=== PATIENT | male | born 1970 | race Caucasian/White ===

== ENCOUNTER 2017-12-15 21:28 | Emergency (ER) | payer SELFPAY ==
[2017-12-15 22:01] LABS: #Basophils 0.1 thou/uL (0.0-0.2); #Eosinphils 0.1 thou/uL (0.0-0.7); #Lymphocytes 1.1 thou/uL (1.20-3.40); #Monocytes 0.6 thou/uL (0.11-0.59); %Basophils 0.6 % (0.0-1.0); %Eosinophils 0.5 % (0.0-10.0); %Lymphocytes 9.2 % (21.0-51.0); %Neutrophils 84.7 % (42.0-75.0); Hemoglobin 16.6 g/dL (14.0-18.0); Mean Corpuscular HGB CONC 32.6 g/dL (32.0-36.0); Mean Corpuscular Hemoglobin 29.1 pg (27.0-31.0); Mean Corpuscular Volume 89.3 fL (78.0-98.0); Mean Platelet Volume 7.9 fL (7.4-10.4); Platelet Count 320 thou/uL (130-400); RBC Distribution Width 11.8 % (11.5-14.5); Red Blood Cell (RBC) Count 5.68 mill/uL (4.70-6.10); White Blood Cell (WBC) Count 11.8 thou/uL (4.8-10.8)
[2017-12-15 22:11] LABS: Bilirubin Negative (Negative); Blood, Urine Negative (Negative); Clarity CLEAR (Clear); Glucose, Urine (Dipstick) Negative (Negative); Leukocyte Negative (Negative); Nitrite Negative (Negative); Protein, Urine (Dipstick) Trace mg/dL (Neg-Trace); Specific Gravity, Urine 1.024 (1.002-1.036); Urobilinogen 0.2 mg/dL (0.2-1.0)
--- NOTE | 2017-12-15 22:16 | RAD ---
PORTABLE UPRIGHT FRONTAL CHEST RADIOGRAPH 12/15/17 COMPARISON: None. HISTORY: Cough. FINDINGS: Heart and mediastinal contours appear within normal limits. The lungs appear clear. IMPRESSION: No acute findings. POS: [facility]
[2017-12-15 22:17] LABS: ALT (SGPT) 60 U/L (8-55); AST (SGOT) 29 U/L (5-34); Albumin 3.8 g/dL (3.5-5.0); Alkaline Phosphatase 84 U/L (40-150); Anion Gap 15 mmol/L (10-20); BUN (Urea Nitrogen) 15 mg/dL (8.9-20.6); Bilirubin, Total 0.5 mg/dL (0.2-1.2); CK (CPK) 222 U/L (30-200); Calc. Creatinine Clearance 0 mL/min (70-130); Calcium 8.9 mg/dL (7.8-10.44); Carbon Dioxide 18 mmol/L (22-29); Chloride 108 mmol/L (98-107); Estimated GFR-MDRD 58; Globulin 3.6 g/dL (2.4-3.5); Glucose 93 mg/dL (70-105); Potassium 4.1 mmol/L (3.5-5.1); Protein, Total 7.4 g/dL (6.0-8.3); Sodium 137 mmol/L (136-145)
[2017-12-15 22:21] LABS: CKMB 2.1 ng/mL (0-6.6); Troponin I Less than 0.010 ng/mL (< 0.028)
[2017-12-15] MEDS ORDERED: Ketorolac Tromethamine 30 MG/ML VIAL ONE (22:44)
[2017-12-15] MEDS ORDERED: Metoclopramide HCl 10 MG/2 ML VIAL ONE (22:44)
== END 2017-12-15 23:31 | disposition home or self-care (01) ==
LOC: ERS 21:28
DX: E86.0 Dehydration (principal); F32.9 Major depressive disorder, single episode, unspecified; Z79.899 Other long term (current) drug therapy
CPT/HCPCS: 36415; 71045; 80053; 81003; 82553; 83605; 84484; 85025; 93005; 96361; 96365; 96375; J1885; J2765

== ENCOUNTER 2018-05-31 21:19 | Observation (INO) | payer OTHER ==
[2018-05-31] MEDS ORDERED: Ondansetron ODT 4 MG TAB ONE (21:29)
--- NOTE | 2018-05-31 21:40 | RAD ---
CHEST ONE VIEW: 05/31/18 COMPARISON: 12/15/17 HISTORY: Pain. FINDINGS: Normal cardiac silhouette. The lungs and pleural spaces are clear. No pneumothorax or osseous abnorma lities. IMPRESSION: No acute cardiopulmonary process. POS: [facility]
[2018-05-31 21:58] LABS: #Basophils 0.1 thou/uL (0.0-0.2); #Eosinphils 0.1 thou/uL (0.0-0.7); #Lymphocytes 2.8 thou/uL (1.20-3.40); #Monocytes 0.4 thou/uL (0.11-0.59); #Neutrophils 2.8 thou/uL (1.40-6.50); %Basophils 1.2 % (0.0-1.0); %Eosinophils 2.2 % (0.0-10.0); %Lymphocytes 45.2 % (21.0-51.0); %Monocytes 6.4 % (0.0-10.0); Hemoglobin 15.1 g/dL (14.0-18.0); Mean Corpuscular HGB CONC 34.7 g/dL (32.0-36.0); Mean Corpuscular Hemoglobin 30.9 pg (27.0-31.0); Mean Corpuscular Volume 89.1 fL (78.0-98.0); Mean Platelet Volume 7.7 fL (7.4-10.4); Platelet Count 344 thou/uL (130-400); RBC Distribution Width 11.2 % (11.5-14.5); Red Blood Cell (RBC) Count 4.89 mill/uL (4.70-6.10); White Blood Cell (WBC) Count 6.2 thou/uL (4.8-10.8)
[2018-05-31 22:09] LABS: ALT (SGPT) 62 U/L (8-55); AST (SGOT) 30 U/L (5-34); Albumin 4.1 g/dL (3.5-5.0); Alkaline Phosphatase 84 U/L (40-150); Anion Gap 16 mmol/L (10-20); BUN (Urea Nitrogen) 18 mg/dL (8.9-20.6); Bilirubin, Total 0.3 mg/dL (0.2-1.2); Calc. Creatinine Clearance 0 mL/min (70-130); Calcium 9.4 mg/dL (7.8-10.44); Carbon Dioxide 20 mmol/L (22-29); Chloride 108 mmol/L (98-107); Estimated GFR-MDRD 84; Globulin 3.3 g/dL (2.4-3.5); Glucose 139 mg/dL (70-105); Potassium 3.5 mmol/L (3.5-5.1); Protein, Total 7.4 g/dL (6.0-8.3); Sodium 140 mmol/L (136-145)
--- NOTE | 2018-05-31 22:31 | PDOC.FPRHP ---
- History of Present Illness Chief Complaint: Chest pain History of Present Illness: Mr. Hernandez presents to the ED with chest pain He reports that at 1830 today he began experiencing substernal pressure, non radiating, non exertional, no diaphoresis with nausea. Upon exam this pain has resolved, he has had pain like this previously that has resolved. He reports acid reflux in the past with pain different from this. He denies any SOB, palpitations, RICHTER, orthopnea. He has HTN and HLD which is untreated 2/2 not following with PCP. He reports his father at 49 from [place]. ED Course: CBC, CMP, CK, Trop, CXR, EKG asa, zofran - History PMHx:HTN, HLD, SARAHI/MDD, migraines PSHx: back surgery 2/2 trauma FHx:CAD Social: no TAD - Review of Systems General: denies: fever/chills, weight/appetite/sleep changes Eyes: denies: eye pain, vision changes Respiratory: denies: cough, congestion, shortness of breath, exercise intolerance Cardiovascular: reports: chest pain. denies: palpitation, edema, orthopnea Gastrointestinal: reports: nausea. denies: vomiting, diarrhea, constipation Genitourinary: denies: incontinence, dysuria Skin: denies: rashes, lesions Musculoskeletal: denies: pain, tenderness Neurological: denies: numbness, syncope, weakness Psychological: reports: anxiety, depression - Vital signs BP: 127/89 HR: 74 RR: 18 Tmax: 97.2 Pox: 98% on RA Wt: 90kg - Physical Exam Constitutional: NAD, awake, alert and oriented HEENT: normocephalic and atraumatic, grossly normal vision, grossly normal hearing, MMM Neck: supple, trachea midline, no JVD Chest: no-tender to palpation, no lesions Heart: RRR, normal S1/S2, no murmurs/rubs/gallops, pulses present, no edema Lungs: CTAB, no respiratory distress, good air movement, no rales/rhonchi Abdomen: soft, non-tender, bowel sounds present Musculoskeletal: normal structure, normal tone Neurological: no focal deficit, normal sensation Skin: no rash/lesions, good turgor Heme/Lymphatic: no unusual bruising or bleeding Psychiatric: normal mood and affect FMR H&P: Results - Labs Result Diagrams: 05/31/18 21:39 05/31/18 21:39 Lab results: WBC 6.2 thou/uL (4.8-10.8) 05/31/18 21:39 Hgb 15.1 g/dL (14.0-18.0) 05/31/18 21:39 Hct 43.6 % (42.0-52.0) 05/31/18 21:39 MCV 89.1 fL (78.0-98.0) 05/31/18 21:39 Plt Count 344 thou/uL (130-400) 05/31/18 21:39 Neutrophils % 45.0 % (42.0-75.0) 05/31/18 21:39 Sodium 140 mmol/L (136-145) 05/31/18 21:39 Potassium 3.5 mmol/L (3.5-5.1) 05/31/18 21:39 Chloride 108 mmol/L (98-107) H 05/31/18 21:39 Carbon Dioxide 20 mmol/L (22-29) L 05/31/18 21:39 BUN 18 mg/dL (8.9-20.6) 05/31/18 21:39 Creatinine 0.95 mg/dL (0.7-1.3) 05/31/18 21:39 Glucose 139 mg/dL (70-105) H 05/31/18 21:39 Calcium 9.4 mg/dL (7.8-10.44) 05/31/18 21:39 Total Bilirubin 0.3 mg/dL (0.2-1.2) 05/31/18 21:39 AST 30 U/L (5-34) 05/31/18 21:39 ALT 62 U/L (8-55) H 05/31/18 21:39 Alkaline Phosphatase 84 U/L (40-150) 05/31/18 21:39 Creatine Kinase 108 U/L (30-200) 05/31/18 21:39 Serum Total Protein 7.4 g/dL (6.0-8.3) 05/31/18 21:39 Albumin 4.1 g/dL (3.5-5.0) 05/31/18 21:39 FMR H&P: A/P - Problem List (1) Chest pain Current Visit: Yes Status: Acute Code(s): R07.9 - CHEST PAIN, UNSPECIFIED (2) HTN (hypertension) Current Visit: Yes Status: Acute Code(s): I10 - ESSENTIAL (PRIMARY) HYPERTENSION (3) HLD (hyperlipidemia) Current Visit: Yes Status: Acute Code(s): E78.5 - HYPERLIPIDEMIA, UNSPECIFIED - Plan Chest pain - typical story, risk factors for CAD present - trop negx1, ekg wnl - s/p asa, continue daily - repeat EKG, give nitro prn for significant chest pain - exercise NM stress in AM, consider cards consult pending results - NPO at midnight HTN - normotensive on exam, consider beginning HTN therapy if consistent elevated BPs - hydralazine prn for SBP>180 HLD - FLP pending, high intensity statin therapy MDD/SARAHI - continue home meds migraines - continue home meds code: full ppx: lovenox dispo: tele obs for cardiac monitoring, trend trops, stress in AM FMR H&P: Upper Level - Pertinent history 48M with HTN and HLD presents for chest pain. It started at approximately 1830 today while driving home from [place]. Descr ibed as a constant pain, substernal , nonradiating, worsening over time, associated with nausea, not relieved or exacerbated by anything. His family history pertinent for father who from [place] at age 49. Heart score of 4 for age, mildly suspicious story and risk factor of HLD, HTN, family history. In ER, who pain was relieved spontaneously. He received 4mg zofran and 325 of aspirin. His trop less then 0.01, CXR showed no acute cardiopulm process and EKG was NSR. - Pertinent findings Gen: Not in acute distress, resting HEENT: Normocephalic, midline trachea, hearing and vision grossly intact CV: No cyanosis, no chest lesion seen Resp: Unlabored - Plan Date/Time: 05/31/182228 1. Atypical chest pain, ACS rule out - Heart score 4. Trop, EKG, CXR negative. Symptom resolved sponatenously - Moderate risk, elevated heart score. Plan for exercise stress tomorrow. See internet marketing strategist note for chronic issues and complete past medical history. I, [Tahir Joyner], have evaluated this patient and agree with findings/plan as outlined by internet marketing strategist resident. Pertinent changes/additions are listed here.
[2018-05-31] MEDS ORDERED: Aspirin Chewable 81 MG TAB ONE (22:48)
[2018-06-01 00:09] VITALS: BMI 29.6
[2018-06-01] MEDS ORDERED: Ondansetron ODT 4 MG TAB PO PRN (00:21)
[2018-06-01] MEDS ORDERED: Acetaminophen 325 MG TAB PO PRN (00:21)
[2018-06-01] MEDS ORDERED: Ondansetron PF 4 MG/2 ML Vial IVP PRN (00:21)
[2018-06-01] MEDS ORDERED: hydrALAZINE 20 MG/ML VIAL SLOW IVP PRN (00:21)
[2018-06-01] MEDS ORDERED: Nitroglycerin 0.4 MG TAB (25 Tab Bottle) PO PRN (00:21)
[2018-06-01] MEDS ORDERED: Zolpidem Tartrate 5 MG TAB PO SCH ×2 (00:45→21:00)
[2018-06-01 01:06] LABS: Troponin I Less than 0.010 ng/mL (< 0.028)
[2018-06-01 04:50] LABS: Cardiac Risk 5.4 (Less than 4.5)
[2018-06-01 04:55] LABS: Troponin I Less than 0.010 ng/mL (< 0.028)
--- NOTE | 2018-06-01 06:24 | PDOC.FM ---
- Subjective Subjective: Patient denies having has any chest pain since getting to the floor. Also denies any N/V, SOB, or diaphoresis. - Objective MAR Reviewed: Yes Vital Signs & Weight: Vital Signs (12 hours) Temp Pulse Resp BP BP Pulse Ox 06/01/18 04:00 97.4 F L 61 16 96/55 L 94 L 06/01/18 00:21 96 06/01/18 00:11 97.5 F L 56 L 20 126/86 96 Weight Weight 88.36 kg I&O: 05/30/18 05/31/18 06/01/18 06:59 06:59 06:59 Intake Total 140 Balance 140 Result Diagrams: 05/31/18 21:39 05/31/18 21:39 Phys Exam - Physical Examination Constitutional: NAD HEENT: moist MMs, sclera anicteric Neck: supple, full ROM Respiratory: no wheezing, no rales, no rhonchi, clear to auscultation bilateral Cardiovascular: RRR, no significant murmur non-TTP Gastrointestinal: positive bowel sounds Neurological: non-focal, moves all 4 limbs Psychiatric: normal affect, A&O x 3 Skin: no rash, normal turgor Dx/Plan (1) GERD (gastroesophageal reflux disease) Code(s): K21.9 - GASTRO-ESOPHAGEAL REFLUX DISEASE WITHOUT ESOPHAGITIS Status: Acute (2) SARAHI (generalized anxiety disorder) Code(s): F41.1 - GENERALIZED ANXIETY DISORDER Status: Acute (3) Chest pain Code(s): R07.9 - CHEST PAIN, UNSPECIFIED Status: Acute (4) HLD (hyperlipidemia) Code(s): E78.5 - HYPERLIPIDEMIA, UNSPECIFIED Status: Acute (5) HTN (hypertension) Code(s): I10 - ESSENTIAL (PRIMARY) HYPERTENSION Status: Acute - Plan Plan: Typical Chest pain 2/2 suspected CAD - Patient's story was a typical ACS story and has multiple risk factors for CAD present with heart score of 4. However, trop negx3 & ekg wnls. - s/p asa in the ED. Will continue daily ASA. - FLP significant for HLD w/ total cholesterol of 233 & LDL of 153. Will consider an A1c for further risk stratification. - Exercise NM stress to be done this AM. Will consult cards PRN based on results. HLD - See FLP results noted above. - Will start on high intensity statin therapy. Reported h/o HTN - Normotensive on exam & since admission. - Will consider beginning amtihypertensive therapy if persistently elevated BPs are seen. - hydralazine prn for SBP>180 MDD/SARAHI - continue home meds migraines - continue home meds GERD - Will continue home protonix. code: full ppx: lovenox dispo: Stress test this AM and will d/c home if WNLs vs. consult cards if abnormal for likely cath. Addendum - Attending - Attending Attestation Date/Time: 06/01/18 9339 I personally evaluated the patient and discussed the management with Dr. Henry. Dr. Harrington H&P reviewed and repeated by me. I agree with the History, Examination, Assessment and Plan documented above with any addition or exceptions noted below. Typical chest pain with cardiac risk factors of strong family history, age, HTN , HLD. EKG normal and trops neg x 3. Will get stress test to r/o CAD. Pt also has GERD and anxiety/depression with a lot of stress right now. Will start PPI scheduled. Needs to establish with PCP
[2018-06-01] MEDS: Topiramate 25 MG TAB PO SCH ×2 (08:51→20:22)
[2018-06-01] MEDS: DULoxetine 60 MG CAP PO SCH (08:52)
[2018-06-01] MEDS: Gabapentin 300 MG CAP PO SCH ×2 (08:52→20:22)
[2018-06-01] MEDS: Enoxaparin Sodium 40 MG/0.4 ML SYRINGE SC SCH (08:52)
[2018-06-01] MEDS: Amlodipine 5 MG TAB PO SCH (08:52)
[2018-06-01] MEDS: Aspirin 325 mg Enteric Coated Tablet PO SCH (08:52)
[2018-06-01] MEDS ORDERED: Non-Formulary Item 1 EACH (Lansoprazole [Prevacid] 30 MG) PO SCH (09:00)
[2018-06-01 09:37] LABS: Hemoglobin A1c 5.1 % (4.0-6.0)
--- NOTE | 2018-06-01 14:03 | NM ---
MYOCARDIAL PERFUSION SCAN: DATE: 06/01/2018. PROVIDED CLINICAL HISTORY: Chest pain. RADIOPHARMACEUTICAL: 32.5 mCi Technetium 99m labeled sestamibi IV stress. 10.6 mCi Technetium 99m labeled sestamibi IV rest. FINDINGS: There is normal, homogeneous distribution of the radiotracer throughout the left ventricular myocardi um at stress and rest. Gated data demonstrate normal myocardial wall motion and thickening with calc ulated LEVF of 68%. TID is 0.92. IMPRESSION: 1. No scintigraphic evidence for ischemia. 2. Normal left ventricular ejection fraction. POS: [facility]
--- NOTE | 2018-06-01 18:53 | PDOC.EVN ---
Event Note - Event Note Event Note: Went to discuss results of negative stress test and workup this far with Mr. Beach and his . Both were visibly distressed and stated that his father had a similar episode at the age of 49, a negative stress test, and of an AL 2 weeks later. They request to be evaluated by cardiology for possible catheterization. I discussed this with [place] who recommended echocardiogram be ordered and that Dr. Agrawal would be able to see him tomorrow unless any concerns develop overnight. Both Mr. Beach and his were pleased to hear this and would like to stay additional night. Will cancel D/C order and make NPO at midnight pending recommendations from Dr. Agrawal.
[2018-06-01] MEDS ORDERED: Atorvastatin Calcium 40 MG TAB PO SCH (21:00)
[2018-06-01] MEDS ORDERED: Non-Formulary Item 1 EACH (Eszopiclone [Lunesta] 3 MG) PO SCH (21:00)
--- NOTE | 2018-06-02 05:57 | PDOC.FM ---
- Subjective Subjective: Patient denies any chest pain since admission. Denies any shortness of breath or N/V/D. Endorses reflux but no abdominal pain or melena or hematochezia. - Objective MAR Reviewed: Yes Vital Signs & Weight: Vital Signs (12 hours) Temp Pulse Resp BP Pulse Ox 06/02/18 05:00 95 06/02/18 03:48 97.8 F 96 18 111/65 06/01/18 19:56 98.4 F 76 20 130/79 95 Weight Weight 88.36 kg I&O: 05/31/18 06/01/18 06/02/18 06:59 06:59 06:59 Intake Total 140 840 Balance 140 840 Result Diagrams: 05/31/18 21:39 05/31/18 21:39 Phys Exam - Physical Examination Constitutional: NAD HEENT: moist MMs Neck: supple, full ROM Respiratory: no wheezing, no rales, no rhonchi, clear to auscultation bilateral Cardiovascular: RRR, no significant murmur Gastrointestinal: soft, non-tender, positive bowel sounds Neurological: non-focal, moves all 4 limbs Psychiatric: normal affect, A&O x 3 Skin: no rash, normal turgor, cap refill <2 seconds Dx/Plan (1) Chest pain Code(s): R07.9 - CHEST PAIN, UNSPECIFIED Status: Acute (2) GERD (gastroesophageal reflux disease) Code(s): K21.9 - GASTRO-ESOPHAGEAL REFLUX DISEASE WITHOUT ESOPHAGITIS Status: Chronic (3) SARAHI (generalized anxiety disorder) Code(s): F41.1 - GENERALIZED ANXIETY DISORDER Status: Chronic (4) HLD (hyperlipidemia) Code(s): E78.5 - HYPERLIPIDEMIA, UNSPECIFIED Status: Chronic (5) HTN (hypertension) Code(s): I10 - ESSENTIAL (PRIMARY) HYPERTENSION Status: Chronic - Plan Plan: Typical Chest pain 2/2 suspected CAD - Patient had negative trops x3 & ekgs have been wnls since admission. Stress test yesterday was also negative; however, patient and insisted on a cardiology evaluation. Echo pending per cards and patient is NPO in anticipation of a possible cath today per cards recs. - Will continue daily ASA & statin. HLD - FLP on admission confirmed diagnosis. - Will continue high intensity statin therapy. HTN - Patient had one elevated BP w/ a systolic BP just over 142 two days ago. Reported his BP normally runs in the 160s systolic at home. - Will continue amlodipine 5mg for now and titrate PRN. MDD/SARAHI - continue home meds migraines - continue home meds GERD - Will continue protonix. code: full ppx: lovenox diet: NPO, meds with sips IVFs: SL ABx: none GI PPx: protonix dispo: Awaiting recs from cards for possible cath today per patient's request. Addendum - Attending - Attending Attestation Date/Time: 06/02/18 6125 I personally evaluated the patient and discussed the management with Dr. Henry I agree with the History, Examination, Assessment and Plan documented above with any addition or exceptions noted below. Strong family hx of CAD- workup negative thus far but patient and anxious that stress test may have missed something (as that is similar to his dad's history). Appreciate cardiology input.
[2018-06-02] MEDS: Amlodipine 5 MG TAB PO SCH (09:17)
[2018-06-02] MEDS: Gabapentin 300 MG CAP PO SCH (09:18)
[2018-06-02] MEDS: Topiramate 25 MG TAB PO SCH (09:18)
[2018-06-02] MEDS: DULoxetine 60 MG CAP PO SCH (09:18)
[2018-06-02] MEDS: Enoxaparin Sodium 40 MG/0.4 ML SYRINGE SC SCH (09:18)
[2018-06-02] MEDS: Aspirin 325 mg Enteric Coated Tablet PO SCH (09:18)
[2018-06-02 12:32] VITALS: BP 135/83; TEMP 98.2
--- NOTE | 2018-06-02 14:23 | CON ---
DATE OF CONSULTATION: 06/02/2018 INDICATION FOR CONSULTATION: A 48-year-old gentleman with chest pain. 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 He believes he had a vasovagal episode. Blood pressure dropped down. He did not feel well. He said he became nauseated, however, earlier he said he did not have any significant diaphoresis, but today he said he thought he had maybe a little bit of diaphoresis. The pain lasted about half an hour. He presented to the emergency room. He has also been complaining of some left lower quadrant discomfort. He presented to the emergency room. Enzymes have been negative. His EKG is unremarkable. He underwent stress testing, which also showed no evidence of ischemia on a nuclear evaluation. At this time, he is scheduled to have an echocardiogram. He was advised to be discharged yesterday as his test so far had been negative, but unfortunately his wanted him to have a cardiac catheterization because his father also had a myocardial infarction at age 49 and apparently , however, he was a heavy smoker, smoked up to 1-2 packs a day. 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 This gentleman's cholesterol is significantly elevated. His LDL level is 157, HDL is 43, and triglycerides 165. He has been given statin medications in the past by Dr. Casey when he saw him previously, but he is not taking these medications. He also was placed on antihypertensive medications, which he also has not been taking. He does have some degree of anxiety and has a history of gastroesophageal reflux disease. At this time, I have explained to the family that he and his both have no indication to perform a cardiac catheterization at this time, but I will await the results of the echocardiogram which will be done later this morning and if this is unremarkable, then I would suggest that the patient be discharged to home. If there was any indication that he will need to undergo cardiac catheterization and then I will be more than willing to proceed. At this time, I do not have an indication to proceed with a cardiac catheterization as all other studies have been negative thus far. PAST MEDICAL HISTORY: Significant for hypertension, hyperlipidemia, history of migraines, gastroesophageal reflux disease. He has depression and anxiety. He has had back surgery. FAMILY HISTORY: Positive for coronary artery disease. SOCIAL HISTORY: He denies any alcohol or tobacco abuse. 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 REVIEW OF SYSTEMS: He does complain of some left lower quadrant discomfort. He has gastroesophageal reflux, which he has at times. He has had this lower retrosternal discomfort at times. He had no other HEENT complaints. He has no pulmonary complaints and no complaints and no skin or musculoskeletal complaints. Neurologically, he does complain of his depression. No musculoskeletal abnormalities. PHYSICAL EXAMINATION: GENERAL: Reveals a well-developed, well-nourished gentleman, who is in no acute distress. VITAL SIGNS: His blood pressure is 106/65. He says he was at home when his blood pressure is in the 150s, but he has not been taking the medications. Temperature is afebrile. Heart rates in the 70s, respiratory rate 16, O2 saturation 96%. HEENT: Shows head to be normocephalic and atraumatic. Carotid pulses are present. There were no bruits. There was no JVD. The thyroid is not enlarged. Oral mucosa is pink and moist. CHEST: Clear to auscultation. No rales, rhonchi, or wheezing were noted. CARDIOVASCULAR: Reveals a regular rate and rhythm. Normal S1, S2. There is no S3 or S4. There were no significant murmurs, heaves, thrills, bruits, or rubs. ABDOMINAL: Soft, flat, nontender. I cannot elicit any pain. There were no masses. EXTREMITIES: Show no clubbing, cyanosis, or edema. Pedal pulses are present. NEUROLOGICAL: The patient appears to be fully intact. SKIN: Warm and dry. IMAGING DATA: EKG showed normal sinus rhythm with no acute changes. LABORATORY DATA: Laboratory data is also unremarkable except for the TSH elevation at 5.34. He appears to have some degree of hypothyroidism. Three sets of cardiac enzymes are negative. His stress test also shows no evidence of reversible ischemia with a normal ejection fraction. His ejection fraction was estimated by the stress test and is 68%. The TID was 0.92. He had normal wall motion and normal thickening. At this time, at the family's request, we will await the results of the echocardiogram, but if this is also normal, then I would not have any indication to proceed with cardiac catheterization in this gentleman. I did explain to him the fact that his since his father and other family members have smoked heavily and this would also be an etiology for their myocardial infarctions. I also strongly encouraged him to take his medications to resume his statin medications and also to take his blood pressure medicines as ordered. However, today blood pressure is not elevated. His present medications at this time include Norvasc 5 mg a day, aspirin 325 mg a day, Lipitor 80 mg a day, Cymbalta 60 mg a day. He is on Lovenox subcu 40 mg for DVT prophylaxis, Neurontin 300 mg b.i.d., Protonix 40 mg a day, Topamax is 50 mg b.i.d. He takes Ambien for sleep at night 10 mg p.r.n. He has also been placed on Zofran as needed as well as nitroglycerin as needed. Please also note that his home medications include Prevacid 30 mg a day, Cymbalta 60 mg a day, Neurontin 300 mg b.i.d., Lunesta 3 mg at bedtime, Adderall 20 mg daily, and Topamax 50 mg b.i.d. Further recommendations will depend on the results of the echocardiogram. However, if this result appears to be normal without any structural abnormalities, then I would suggest the patient to be discharged and can follow up as an outpatient. Job ID: [id number]
== END 2018-06-02 15:18 | disposition home or self-care (01) ==
LOC: ERS 21:19 → 2SW 06-01 00:06
PROVIDERS: ADMIT Family Medicine; ATTEND Family Medicine
DX: R07.89 Other chest pain (principal); E78.5 Hyperlipidemia, unspecified; G43.909 Migraine, unspecified, not intractable, without status migrainosus; F32.9 Major depressive disorder, single episode, unspecified; I10 Essential (primary) hypertension; F41.1 Generalized anxiety disorder; K21.9 Gastro-esophageal reflux disease without esophagitis; E78.00 Pure hypercholesterolemia, unspecified; Z79.899 Other long term (current) drug therapy
CPT/HCPCS: 36415; 71045; 78452; 80053; 80061; 82550; 83036; 83735; 84439; 84443; 84484; 85025; 93005; 93017; 93306; 94760; 96372; A9500; G0378; J1650; Q0162